=== PATIENT | male | born 1960 | race Caucasian/White ===

== ENCOUNTER 2023-04-05 09:18 | Outpatient (REF) | payer OTHER, SELFPAY ==
--- NOTE | 2023-04-05 09:23 | EMG_ITS ---
Please see scanned EMG / Nerve Conduction Report. MTDD
== END 2023-04-05 09:19 | disposition home or self-care (01) ==
LOC: HO.NEURO 09:18
PROVIDERS: PCP Internal Medicine; Visit Provider Internal Medicine
DX: R20.2 Paresthesia of skin (principal)
CPT/HCPCS: 95860; 95885; 95907; 95910